=== PATIENT | male | born 2000 | race Caucasian/White ===

== ENCOUNTER 2024-07-19 03:15 | Day surgery (SDC) | payer OTHER ==
[~2024-07-19] VITALS: Ht 185.4 cm; Wt 93.0 kg
[2024-07-19] VITALS (242 sets, daily range): BP systolic 101–166; BP diastolic 51–137
--- NOTE | 2024-07-19 07:00 | NUR ---
Arrival & Pre-treatment Patient arrived to the ANR suite, identification and demographics confirmed. Patient to room 8, AAO, ambulatory, vitals obtained, ID/allergy/fall bands placed, changed into hospital gown, SETH hose, and non-slip socks. Procedure and timeline explained for treatment and discharge. All questions answered and the patient presents no concerns at this time.
--- NOTE | 2024-07-19 07:20 | NUR ---
Went over belongings list with patient. Patient gave his wallet to his mother Magalys for safe keeping. Patient retained with him the clothes on his back and cell phone. Patient has no contraband with him.
[2024-07-19] MEDS ORDERED: ALBUTEROL SULFATE 2.5 MG VIAL IN PRN (07:30)
[2024-07-19] MEDS ORDERED: CYANOCOBALAMIN 500 MCG/TAB ( B12) PO PRN (07:30)
[2024-07-19] MEDS ORDERED: LACTATED RINGER'S 1,000 ML IV PRN ×3 (07:30→19:00)
[2024-07-19] MEDS ORDERED: diazePAM 5 MG/TAB PO PRN ×2 (07:30→08:30)
[2024-07-19] MEDS ORDERED: cloNIDine HCL 0.1 MG/TAB PO PRN (07:30)
[2024-07-19] MEDS ORDERED: PANTOPRAZOLE SODIUM Sesquihydr 40 MG/TAB PO PRN (07:30)
[2024-07-19] MEDS ORDERED: FAMOTIDINE 20 MG/TAB PO PRN (07:30)
[2024-07-19] MEDS ORDERED: SCOPOLAMINE 1.5 MG DIS TD PRN (07:30)
--- NOTE | 2024-07-19 07:45 | NUR ---
Dr. Austin telephoned with patient intake information including usage, dose, last dose/time taken and initial vital signs. Patient history and allergies reviewed with MD. Orders received for 10mg PO Valium and 0.3 mg PO Clonidine now. Will reassess per protocol in 1.5 hours and update MD with assessment and vitals. Patient medicated per MD orders. In addition to Clonidine and Valium, patient received 1000 mcg B12 PO, 20 mg Pepcid PO, and Scopolamine TD patch. Medication indication and education provided prior to administration.
[2024-07-19] MEDS ORDERED: ASCORBIC ACID 4,000 MG in SODIUM CHLORIDE 0.9% 1,000 ML IV SCH (08:00)
[2024-07-19 08:19] LABS: BASO% 0.5 % (0-3); EOS% 1.8 % (0-8); HEMATOCRIT 47.1 % (39.0-50.0); HEMOGLOBIN 14.9 g/dl (14.0-18.0); IMMATURE GRANULOCYTES 0.2 % (0.0-5.0); LYMPH% 33.6 % (15-41); MEAN CELL VOLUME 90.1 fL CALC (80.0-100.0); MEAN CORPUSCULAR HGB 28.5 pG CALC (26.0-32.0); MEAN CORPUSCULAR HGB CONC 31.6 g/dL CAL (32.0-36.0); MONO% 6.8 % (2-13); NEUT# 3.26 thou/uL (1.82-7.42); NEUT% 57.1 % (42-76); RED BLOOD COUNT 5.23 mill/uL (4.70-6.10); RED CELL DISTRI WIDTH 13.1 % (11.5-15.5)
[2024-07-19 08:33] LABS: ALBUMIN 5.2 g/dL (3.2-5.0); BILIRUBIN, TOTAL 0.9 mg/dL (0.2-1.3); CREATININE 0.9 mg/dL (0.7-1.3); POTASSIUM 4.4 mmol/l (3.5-5.1); TOTAL PROTEIN 8.5 g/dL (6.3-8.2)
[2024-07-19] MEDS ORDERED: ATIVAN1 M1 PO (08:58)
[2024-07-19] MEDS ORDERED: CLONIDINE0.2 MG PO (08:59)
[2024-07-19] MEDS ORDERED: DEXTROSE 250 ML IV ONE (10:25)
--- NOTE | 2024-07-19 10:38 | NUR ---
Patient resting comfortably in bed. Easily aroused, maintains focus, and drifts back to sleep. No signs of active withdrawal or distress noted at this time. Continuous SPO2, rhythm, and respiratory monitoring initiated. IVF @ 250 mL/HR, room air, VSS.
[2024-07-19] MEDS ORDERED: PROPOFOL 10 MG/ML 100ML VIAL IV PRN (10:40)
[2024-07-19] MEDS ORDERED: NALTREXONE HCL 50 MG/TAB VT PRN (10:40)
[2024-07-19] MEDS ORDERED: POTASSIUM CHLORIDE 20 MEQ/100 ML BAG IV PRN (10:40)
[2024-07-19] MEDS ORDERED: cloNIDine HYDROCHLORIDE 100 MCG/ML 10 ML INJ IV PRN (10:40)
[2024-07-19] MEDS ORDERED: LIDOCAINE HCL 1% (10MG/ML) 100 MG/10 ML MDV VT PRN ×2 (10:40)
[2024-07-19] MEDS ORDERED: STERILE WATER FOR IRRIGATION 1,000 ML BTL IR PRN (10:40)
[2024-07-19] MEDS ORDERED: THIAMINE HCL 100 MG/ML 2ML VIAL IV PRN (10:40)
[2024-07-19] MEDS ORDERED: MAGNESIUM SULFATE HEPTAHYDRATE 100 ML IV PRN (10:40)
[2024-07-19] MEDS ORDERED: ONDANSETRON HCl 4 MG/2 ML SDV IV PRN ×3 (10:40→19:00)
[2024-07-19] MEDS ORDERED: PROPOFOL 100 ML IV PRN (10:40)
[2024-07-19] MEDS ORDERED: ROCURONIUM BROMIDE 10 MG/ML 5ML VIAL IV PRN (10:40)
[2024-07-19] MEDS ORDERED: DiphenhydrAMINE HCL 50 MG/ML SDV IV PRN (10:40)
[2024-07-19] MEDS ORDERED: OCTREOTIDE ACETATE 100 MCG/VIAL SDV SC PRN (10:40)
[2024-07-19] MEDS ORDERED: SUCCINYLCHOLINE CHLORIDE 20 MG/ML 10ML VIAL IV PRN (10:40)
[2024-07-19] MEDS ORDERED: LIDOCAINE HCL 1% (10MG/ML) 100 MG/10 ML MDV IV PRN (10:40)
[2024-07-19] MEDS ORDERED: MIDAZOLAM HCL 2 MG/2 ML VIAL IV PRN (10:40)
[2024-07-19] MEDS ORDERED: diazePAM 5 MG/TAB VT PRN (10:40)
[2024-07-19] MEDS ORDERED: cloNIDine HCL 0.1 MG/TAB VT PRN (10:40)
--- NOTE | 2024-07-19 11:52 | NUR ---
Induction Note Patient to [facility]R procedure room. Time out performed at 1152. Patient placed on monitors, Aaron hugger, bilateral wrist restraints applied for ET tube protection. Versed 5mg given IV push at 1230 Tourniquet applied to RIGHT arm Lidocaine 100mg given at 1231 IV push followed by Rocoronium 10mg at 1232 IV push and held for 90 seconds. Propofol bolus of 130mg given at 1234 IV push. Succinylcholine 80mg given IV push at 1235. Smooth intubation with 7.5 ETT. Positive CO2. Positive Auscultation for air exchange. Patient placed on ventilator for spontaneous ventilation. Placed on Propofol IV drip at 1236. OG inserted. Positive air on auscultation. Positive gastric content. Stomach washed at this time.
--- NOTE | 2024-07-19 13:00 | NUR ---
OG close note Stomach washed at this time. Naltrexone 50 mg with Clonidine 0.3 mg via OG tube. OG will be clamped for 45 minutes.
--- NOTE | 2024-07-19 13:45 | NUR ---
OG open note OG open at this time. Gastric content draining into drainage bag. OG to drain for 45 minutes. Propofol will be titrated down based on patient.
--- NOTE | 2024-07-19 14:30 | NUR ---
OG close note Stomach washed at this time. Naltrexone 50 mg with Clonidine 0.3 mg via OG tube. OG will be clamped for 45 minutes.
[2024-07-19] MEDS ORDERED: hydrALAZINE HCL 20 MG/ML VIAL(1 ML) IV SCH (15:00)
--- NOTE | 2024-07-19 16:00 | NUR ---
OG close note Stomach washed at this time. Naltrexone 50 mg with Clonidine 0 mg via OG tube. OG will be clamped for 45 minutes.
[2024-07-19] MEDS ORDERED: CLONIDINE0.1 MG PO (17:04)
[2024-07-19] MEDS ORDERED: NALTREXONE50 MG PO (17:04)
[2024-07-19] MEDS ORDERED: KLONOPIN2 MG PO (17:05)
--- NOTE | 2024-07-19 17:30 | NUR ---
OG close note Stomach washed at this time. Naltrexone 25 mg with Clonidine 0 mg via OG tube. OG will be clamped for 45 minutes.
[2024-07-19] MEDS ORDERED: ACETAMINOPHEN 1,000 MG/100 ML VIAL IV PRN (19:00)
[2024-07-19] MEDS ORDERED: PROMETHAZINE HCL 12.5 MG in SODIUM CHLORIDE 0.9% 50 ML IV PRN (19:00)
[2024-07-19] MEDS ORDERED: LORazepam 2 MG/ML IV PRN ×2 (19:00)
[2024-07-19] MEDS ORDERED: ACETAMINOPHEN 500 MG TAB PO PRN (19:00)
[2024-07-19] MEDS ORDERED: KETOROLAC TROMETHAMINE 30 MG/ML SDV IV PRN (19:00)
[2024-07-19] MEDS ORDERED: PROMETHAZINE HCL 25 MG in SODIUM CHLORIDE 0.9% 50 ML IV PRN (19:00)
[2024-07-19] MEDS ORDERED: HALOPERIDOL LACTATE 5 MG/ML SDV IV PRN (19:00)
--- NOTE | 2024-07-19 19:00 | NUR ---
OG close note Stomach washed at this time. Naltrexone 0 mg with Clonidine 0 mg via OG tube. OG will be clamped for 30 minutes.
--- NOTE | 2024-07-19 19:30 | NUR ---
OG open note OG open at this time. Gastric content draining into drainage bag. OG to drain . Propofol will be titrated down based on patient.
--- NOTE | 2024-07-19 19:35 | NUR ---
Extubation note Closing medications given Benadryl 50mg IV push, Decadron 10mg IV push,Magnesium 4 grams IV, Zofran 8mg IV push, Octreotide 100mcg SC. Stomach washed out prior to extubation. Suctioned gastric content. OG removed. Patient extubated. Propofol Discontinued. Wrist restraints removed. Aaron hugger Removed. See ANR Moderate sedate recovery record for further notes and assessment.
--- NOTE | 2024-07-19 20:15 | NUR ---
TRANSER NOTE Patient transferred to medical-surgical unit. Report given to receiving nurse at bedside. Treatment, medications, I/O, IV access reviewed with RN. All questions answered. IVF to continue at 100 ml/hr, NC @ 2L, no adventitious breath sounds. Safety precautions in place, bed locked and in lowest position, call light in reach. Patients mother , Magalys called and given update on patient . informed her that she would be hearing from Radha ADAME between 11- tommorow with update and and tentative time for D/c.
[2024-07-19] MEDS ORDERED: PATIENT' OWN MED CONTROLLED 1 EA DOSE IV PRN (21:00)
--- NOTE | 2024-07-19 21:00 | NUR ---
PT ARRIVED TO ICU AND REPORT GIVEN TO FIELD CROP I FARMWORKER/RN BY ESCORTING NURSE. PT ON 0.8 PRECEDEX AND IS AWAKE, ALERT AND REQUESTING MEDICATION FOR SLEEP. REDIRECTABLE AT THIS TIME. VSS
[2024-07-19] MEDS ORDERED: clonazePAM 1 MG/TAB PO SCH (21:54)
[2024-07-19] MEDS ORDERED: cloNIDine HCL 0.1 MG/TAB PO SCH (23:00)
[2024-07-19] MEDS ORDERED: clonazePAM 1 MG/TAB PO PRN (23:00)
--- NOTE | 2024-07-19 23:29 | NUR ---
PRECEDEX DRIP REMAINS AT 0.8, VSS AT THIS TIME
[2024-07-20] VITALS (24 sets, daily range): BP systolic 132–166; BP diastolic 74–107
--- NOTE | 2024-07-20 | NUR ---
ADMINISTERED SCHEDULED MEDICATION PER EMAR. PT PRESENTS ALERT AND DROWSY BUT ABLE TO FOLLOW COMMANDS AND MAKE NEEDS KNOWN. PT USED URINALS WITH ASSISTANCE. EPISODE OF INC BM, TAXICAB DRIVER AND BARBACK CLEANED AND CHANGED PT, REPOSITIONED IN BED. VSS. NO S/S OF DISTRESS. BED ALARM ON AND SAFETY PRECAUTIONS IN PLACE.
--- NOTE | 2024-07-20 01:56 | NUR ---
PT ASSESSED AND REASSESSED BY PRIMARY NURSE AND ASSISTING RN. PT MANAGEMENT OF SYMPTOMS REQUIRES PRECEDEX MAINTAINED AT 0.8. VSS. ALERT AND RESPONSIVE. AROUSABLE TO SOUND. RESTING CALMLY WITH FALL PRECAUTIONS IN PLACE.
[2024-07-20] MEDS ORDERED: NALTREXONE HCL 50 MG/TAB PO SCH (04:00)
[2024-07-20] MEDS ORDERED: cloNIDine HCL 0.1 MG/TAB PO PRN (04:00)
[2024-07-20] MEDS ORDERED: clonazePAM 1 MG/TAB PO PRN ×2 (04:00→08:00)
[2024-07-20 04:24] LABS: BASO% 0.1 % (0-3); HEMATOCRIT 41.3 % (39.0-50.0); HEMOGLOBIN 14.3 g/dl (14.0-18.0); IMMATURE GRANULOCYTES 0.1 % (0.0-5.0); LYMPH% 10.2 % (15-41); MEAN CORPUSCULAR HGB 29.2 pG CALC (26.0-32.0); MEAN CORPUSCULAR HGB CONC 34.6 g/dL CAL (32.0-36.0); MONO% 2.3 % (2-13); NEUT# 8.98 thou/uL (1.82-7.42); NEUT% 87.3 % (42-76); RED BLOOD COUNT 4.9 mill/uL (4.70-6.10); RED CELL DISTRI WIDTH 12.9 % (11.5-15.5)
[2024-07-20 04:26] LABS: MEAN CELL VOLUME 84.3 fL CALC (80.0-100.0)
--- NOTE | 2024-07-20 04:26 | NUR ---
ADMINISTERED SCHEDULED MEDS EMAR. PT TOELRATED WELL. DENIES ANY N/V/P. PT STATES "FEELING SLIGHTLY BETTER" ENCOURAGED PT TO CONTINUE RESTING AND SLEEPING THAT WILL IMPROVE STATUS. VSS. IVF RUNNING PER EMAR. NO S/S OF DISTRESS. BED ALARM ON AND SAFETY PRECAUTIONS IN PLACE.
[2024-07-20 04:39] LABS: ALBUMIN 4.7 g/dL (3.2-5.0); BILIRUBIN, TOTAL 0.7 mg/dL (0.2-1.3); CREATININE 0.9 mg/dL (0.7-1.3); MAGNESIUM 2.9 mg/dL (1.6-2.3); POTASSIUM 4.3 mmol/l (3.5-5.1); TOTAL PROTEIN 7.8 g/dL (6.3-8.2)
--- NOTE | 2024-07-20 04:52 | NUR ---
PT IS RESTING WITH SYMPTOMS MANAGED BY MAINTAINING PRECEDEX GTT AT 0.8. VSS NO DISTRESS NOTED.
--- NOTE | 2024-07-20 05:40 | NUR ---
ROUNDED ON PT WITH PM RN. PT IS RESTING IN BED WITH EYES CLOSED, EASILY AWOKEN AND CAN CONVERSE WITH STAFF. STAFF REPORTS SEVERAL LIQUID STOOLS. NO N/V. PT IS AOx4, VSS. PRECEDEX DRIP TO BE STOPPED AT THIS TIME.
--- NOTE | 2024-07-20 06:26 | NUR ---
ANR CHARGE IN TO ASSESS PATIENTS WITH RN, DRIP MANAGEMENT REVIEWED. VSS. DRIP OFF AT 0635AM
--- NOTE | 2024-07-20 07:04 | NUR ---
bedside report was given from giuliana
[2024-07-20] MEDS ORDERED: ACETAMINOPHEN 325 MG/TAB PO SCH (08:00)
[2024-07-20] MEDS ORDERED: PANTOPRAZOLE SODIUM Sesquihydr 40 MG/TAB PO SCH (08:00)
[2024-07-20] MEDS ORDERED: cloNIDine HCL 0.1 MG/TAB PO SCH (08:00)
--- NOTE | 2024-07-20 08:06 | NUR ---
MORNING MEDICATIONS GIVEN. PATIENT REQUESTING HIS DAILY ATIVAN AT THIS TIKME. ATIVAN 1 MG GIVEN AT THIS TIME. PATIENT IN BILL DISTRESS. V/S STABLE.
[2024-07-20] MEDS ORDERED: ACETAMINOPHEN 500 MG TAB PO PRN (09:00)
[2024-07-20] MEDS ORDERED: Cholecalciferol 2,000 UNIT/TAB PO PRN (09:00)
[2024-07-20] MEDS ORDERED: MAGNESIUM OXIDE 400 MG/TAB PO PRN (09:00)
[2024-07-20] MEDS ORDERED: BISMUTH SUBSALICYLATE 262 MG CHW PO PRN (10:00)
--- NOTE | 2024-07-20 11:12 | NUR ---
patient moved to pr from icu a/o x3; stale condition;patient complaint of nausea, medicated per emar; iv site clean and intact saline locked at this time; patint currently in bathroom, still some complaints of dirrhea, medicated per emar
--- NOTE | 2024-07-20 12:52 | NUR ---
patient a/o x3; room air breathing unlabored denied any pain denied any n/v/ at this time patient currently laying side ways on his phone, iv site clean and intact running with lr @100; no s/s of distress at this time awaiting lunch call light within reach verbalized understanding on how to use, personal clothes was returned to [facility] bed in lowest postion safety measures in place bed alarm activated
--- NOTE | 2024-07-20 14:30 | NUR ---
AMBULATED DOWN HALLWAYS WITH DR ENGLISH
--- NOTE | 2024-07-20 15:13 | NUR ---
IV site discontinued, cath intact. No edema , no redness, voices no discomfort. Discharge instructions given. Patient verbalizes understanding of same. Discharged in stable condition via Ambulatory to Home with family. All belongings sent with pt. APPROVED DISCHARGE BY DR. PEREZ
== END 2024-07-20 16:15 | disposition home or self-care (01) | DRG 897 ==
LOC: MS2 03:15 → ANR 03:15 → ICU 14:36 → MS2 07-20 10:30 → ANR 07-20 16:15
PROVIDERS: ATTEND Anesthesiology
DX: F11.20 Opioid dependence, uncomplicated (principal); R19.7 Diarrhea, unspecified
CPT/HCPCS: J0360; J1100; J1200; J2060; J2354; J2405; J2704; J3475; J3480; J3490